=== PATIENT | male | born 1985 | race Caucasian/White ===

== ENCOUNTER → 2019-04-07 08:39 | Outpatient (BNVA) | payer MEDICARE, MEDICAID, SELFPAY | PROVIDERS: Family Provider Nurse Practitioner; PCP Nurse Practitioner; Visit Provider Nurse Practitioner Psychiatric/Mental Health | DX: F20.89 Other schizophrenia (principal) | CPT/HCPCS: 99213 ==

== ENCOUNTER → 2019-07-27 07:27 | Outpatient (BNVA) | payer MEDICARE, MEDICAID, SELFPAY | PROVIDERS: Family Provider Nurse Practitioner; PCP Nurse Practitioner; Visit Provider Nurse Practitioner Psychiatric/Mental Health | DX: F20.89 Other schizophrenia (principal) | CPT/HCPCS: 99213 ==

== ENCOUNTER → 2019-11-16 07:47 | Outpatient (BNVA) | payer MEDICARE, MEDICAID, SELFPAY | PROVIDERS: Family Provider Nurse Practitioner; PCP Nurse Practitioner; Visit Provider Nurse Practitioner Psychiatric/Mental Health | DX: F20.89 Other schizophrenia (principal) | CPT/HCPCS: 99213 ==

== ENCOUNTER → 2019-11-24 14:36 | Outpatient (BNVA) | payer MEDICARE, MEDICAID, SELFPAY | PROVIDERS: Family Provider Nurse Practitioner; PCP Nurse Practitioner; Visit Provider Nurse Practitioner Psychiatric/Mental Health | DX: Z79.899 Other long term (current) drug therapy (principal); F20.89 Other schizophrenia | CPT/HCPCS: 80053; 80061; 80178; 83036 ==

== ENCOUNTER → 2020-03-15 08:24 | Outpatient (BNVA) | payer MEDICARE, MEDICAID, SELFPAY | PROVIDERS: Family Provider Nurse Practitioner; PCP Nurse Practitioner; Visit Provider Nurse Practitioner Psychiatric/Mental Health | DX: F20.89 Other schizophrenia (principal); Z79.899 Other long term (current) drug therapy | CPT/HCPCS: 99214 ==

== ENCOUNTER → 2020-08-09 10:10 | Outpatient (BNVA) | payer MEDICARE, MEDICAID, SELFPAY | PROVIDERS: Family Provider Nurse Practitioner; PCP Nurse Practitioner; Visit Provider Nurse Practitioner Psychiatric/Mental Health | DX: F20.89 Other schizophrenia (principal); Z79.899 Other long term (current) drug therapy | CPT/HCPCS: 99214 ==

== ENCOUNTER → 2020-08-10 08:04 | Outpatient (BNVA) | payer MEDICARE, MEDICAID, SELFPAY | PROVIDERS: Family Provider Nurse Practitioner; PCP Nurse Practitioner; Visit Provider Nurse Practitioner Psychiatric/Mental Health | DX: Z79.899 Other long term (current) drug therapy (principal) | CPT/HCPCS: 80053; 80061; 80164; 80178; 83036 ==

== ENCOUNTER → 2020-09-12 14:59 | Outpatient (BNVA) | payer MEDICARE, MEDICAID, SELFPAY | PROVIDERS: Family Provider Nurse Practitioner; PCP Nurse Practitioner; Visit Provider Nurse Practitioner | DX: Z13.6 Encounter for screening for cardiovascular disorders (principal) | CPT/HCPCS: 80053; 80061; 85025 ==

== ENCOUNTER → 2020-11-03 10:40 | Outpatient (BNVA) | payer MEDICARE, MEDICAID, SELFPAY | PROVIDERS: Family Provider Nurse Practitioner; PCP Nurse Practitioner; Visit Provider Nurse Practitioner Psychiatric/Mental Health | DX: F20.89 Other schizophrenia (principal) | CPT/HCPCS: 99214 ==

== ENCOUNTER → 2021-01-26 10:47 | Outpatient (BNVA) | payer MEDICARE, MEDICAID, SELFPAY | PROVIDERS: Family Provider Nurse Practitioner; PCP Nurse Practitioner; Visit Provider Nurse Practitioner Psychiatric/Mental Health | DX: F20.89 Other schizophrenia (principal); Z79.899 Other long term (current) drug therapy | CPT/HCPCS: 99214 ==

== ENCOUNTER → 2021-04-20 10:26 | Outpatient (BNVA) | payer MEDICARE, MEDICAID, SELFPAY | PROVIDERS: Family Provider Nurse Practitioner; PCP Nurse Practitioner; Visit Provider Nurse Practitioner Psychiatric/Mental Health | DX: F20.89 Other schizophrenia (principal); Z79.899 Other long term (current) drug therapy | CPT/HCPCS: 80053; 80061; 80164; 83036; 99214 ==

== ENCOUNTER → 2021-05-02 10:39 | Outpatient (BNVA) | payer MEDICARE, MEDICAID, SELFPAY | PROVIDERS: Family Provider Nurse Practitioner; PCP Nurse Practitioner; Visit Provider Nurse Practitioner | DX: F20.89 Other schizophrenia (principal); Z79.899 Other long term (current) drug therapy; E78.2 Mixed hyperlipidemia | CPT/HCPCS: 80178 ==

== ENCOUNTER → 2021-07-20 10:48 | Outpatient (BNVA) | payer MEDICARE, MEDICAID, SELFPAY | PROVIDERS: Family Provider Nurse Practitioner; PCP Nurse Practitioner; Visit Provider Nurse Practitioner Psychiatric/Mental Health | DX: F20.89 Other schizophrenia (principal); Z79.899 Other long term (current) drug therapy | CPT/HCPCS: 99214 ==

== ENCOUNTER 2021-09-18 09:06 | Emergency (ER) | payer MEDICARE, MEDICAID, SELFPAY ==
[2021-09-18 09:13] VITALS: BP 156/101; PULSE 88; RESP 14; TEMP 36.4; O2SAT 99; BMI 27.3
--- NOTE | 2021-09-18 10:09 | ED.C_ITS ---
HPI - Psych General: Chief Complaint: Psychiatric Symptoms Stated Complaint: paranoid, hearing voices Time Seen by Provider: 09/18/21 09:23 Source: patient Mode of arrival: ambulatory History of Present Illness: 35-year-old male presents emergency room he has a history of schizophrenia. He has been hearing voices for last couple of months been getting worse he is not sleeping somewhat depressed he denies any suicidal homicidal thoughts. He is not aggressive he is aware of hallucinations and that they are not real. He states he has been admitted for suicidal ideation in the past but it was 10 or more years ago. MD complaint: other (Hallucinations) Onset (ago): month(s) Duration: intermittent and getting worse History of same: Yes Relieving factors: none Exacerbating factors: none Associated psychiatric symptoms: none Associated symptoms: Reports auditory hallucinations and visual hallucinations; Deny homicidal ideation or suicidal ideation Review of Systems Const: Denies: fever(s), chills, body aches, change in appetite, fatigue or malaise ENMT: Denies: throat pain, ear or mastoid pain, nasal discharge or nasal congestion Card: Denies: chest pain, edema, dyspnea on exertion or orthopnea Resp: Denies: dyspnea, productive cough or non-productive cough GI: Denies: abdominal pain, nausea, vomiting, hematemesis, coffee ground emesis, diarrhea, constipation, bloating, hematochezia or melena : Denies: flank pain, dysuria, urinary frequency or urinary urgency Skin/Breast: Denies: rash or pruritus Psych: Reports: visual hallucinations and auditory hallucinations; Denies: suicidal ideation or homicidal ideation [facility] ED PFSH: Medical History Hyperlipidemia, mixed Other schizophrenia Psychiatric care Surgical History No history of previous surgery Family History Other Diabetes Stroke Denies family history of Dementia Lung disease Cancer Hypertension Social History Smoking and tobacco status: never smoked Second hand smoke exposure: No Smoking risk assessment/counseling performed?: No Alcohol intake: never Desire information about alcohol rehabilitation?: No Counseling given: No Desire information about substance/drug rehabilitation?: No Counseling given: No Adopted: No Caregiver/support person: Yes Lives independently: No Household members: family Housing: House Marital status: Single Number of children: 0 service: No Current occupational status: disabled Pets and animals: Yes Current gender identity: Male Physical Exam Const: COMMON NORMALS: no acute distress GENERAL APPEARANCE: cooperative and comfortable ORIENTATION/CONSCIOUSNESS: Yes awake, Yes oriented to person, Yes oriented to place and Yes oriented to time HENMT: COMMON NORMALS: normocephalic, atraumatic and hearing grossly normal bilaterally HEAD & SCALP: normocephalic and atraumatic Resp: COMMON NORMALS: normal respiratory effort, No retractions, No use of accessory muscles and clear to auscultation bilaterally AUSCULTATION: clear to auscultation bilaterally Cardio: COMMON NORMALS: regular rate, regular rhythm and No murmurs present (Cardio) RATE: regular rate RHYTHM: regular rhythm GI: COMMON NORMALS: Soft to palpation and No hepatosplenomegaly present AUSCULTATION: Yes normoactive bowel sounds PALPATION: Yes Soft to palpation, No Tenderness to palpation present (GI), No Guarding due to palpation present (GI) and Yes No hepatosplenomegaly present Extremity: COMMON NORMALS: normal to inspection, capillary refill normal, no clubbing, cyanosis or edema, no calf tenderness and no pedal edema Neuro: SENSORIUM/ORIENTATION: Yes oriented to person, Yes oriented to place and Yes oriented to time Psych: COMMON NORMALS: mental status grossly normal and Normal thought process present THOUGHT PROCESS: Normal thought process present INSIGHT: Good insight present (Psych) OTHER: Patient calm. He is not alarmed by the auditory visual hallucinations he has good insight and he is aware that they are not real. He is repeatedly denying suicidal homicidal ideation. Skin: COMMON NORMALS: no rashes or lesions noted GENERAL SKIN EXAM: no rashes or lesions noted Course Vital Signs: Vital signs: Vital Signs Temperature 97.5 F L 09/18/21 09:13 Pulse Rate 86 09/18/21 11:04 Respiratory Rate 14 09/18/21 09:13 Blood Pressure 148/113 09/18/21 11:04 Pulse Oximetry 99 09/18/21 11:04 Oxygen Delivery Fl thod 09/18/21 11:00 [facility] - Psych Medical Decision Making Dr. Moss is on-call I discussed with him we both agreed on increasing his Invega to 9 mg daily. I gave him some shorter acting antipsychotics here discussed with the patient the plan we will also make arrangements for him to have short-term follow-up at [facility]. Neither Dr. Moss nor myself feel that he would benefit from inpatient status at this point he is not at a crisis level and we can likely treat him as an outpatient by increasing the Invega. Discussed this with patient and his family member/friend at the bedside. Also discussed they may need to continue titrating up depending on how well he did with this change. Medical Records I reviewed the patient's medical records. Lab Data I reviewed the patient's lab results. : 09/18/21 10:40 09/18/21 10:40 Laboratory Results WBC 6.3 10^3/uL (4.0-10.0) 09/18/21 10:40 RBC 4.76 10^6/uL (4.1-5.3) 09/18/21 10:40 Hgb 14.3 g/dL (11.7-16.6) 09/18/21 10:40 Hct 45.1 % (42.0-52.0) 09/18/21 10:40 MCV 94.7 fl (80-94) H 09/18/21 10:40 MCH 30.0 pg (28.0-34.0) 09/18/21 10:40 MCHC 31.7 g/dL (30.0-36.0) 09/18/21 10:40 RDW 11.9 % (12.1-15.1) L 09/18/21 10:40 Plt Count 210 10^3/cmm (130-400) 09/18/21 10:40 MPV 9.4 fL (7.4-10.4) 09/18/21 10:40 Neut % (Auto) 59.8 % 09/18/21 10:40 Lymph % (Auto) 26.3 % 09/18/21 10:40 [place] % (Auto) 10.7 % 09/18/21 10:40 Eos % (Auto) 1.8 % 09/18/21 10:40 Baso % (Auto) 0.8 % 09/18/21 10:40 Neut # (Auto) 3.75 10^3/uL (1.8-7.7) 09/18/21 10:40 Lymph # (Auto) 1.7 10^3/uL (0.8-4.8) 09/18/21 10:40 [place] # (Auto) 0.7 10^3/uL (0.2-0.9) 09/18/21 10:40 Eos # (Auto) 0.1 10^3/uL (0.0-0.8) 09/18/21 10:40 Baso # (Auto) 0.1 10^3/uL (0.0-0.1) 09/18/21 10:40 Nucleated RBC % (auto) 0 % 09/18/21 10:40 Nucleated RBCs # 0.0 /100WBC 09/18/21 10:40 Sodium 143 mmol/L (136-145) 09/18/21 10:40 Potassium 4.2 mmol/L (3.5-5.1) 09/18/21 10:40 Chloride 104 mmol/L (98-107) 09/18/21 10:40 Carbon Dioxide 29 mmol/L (22-29) 09/18/21 10:40 Anion Gap 14.2 (5-19) 09/18/21 10:40 BUN 13 mg/dL (6-20) 09/18/21 10:40 Creatinine 1.1 mg/dL (0.7-1.2) 09/18/21 10:40 GFR Calculation 75.7 mL/min (90-130) L 09/18/21 10:40 Glucose 99 mg/dL (65-115) 09/18/21 10:40 Calculated Osmolality 296 mOsm/kg (285-295) H 09/18/21 10:40 Calcium 10.1 mg/dL (8.5-10.5) 09/18/21 10:40 Total Bilirubin 0.2 mg/dL (0.15-1.2) 09/18/21 10:40 AST 19 U/L (0-40) 09/18/21 10:40 ALT 20 U/L (0-41) 09/18/21 10:40 Alkaline Phosphatase 79 IU/L (40-130) 09/18/21 10:40 Total Protein 7.4 g/dL (6.6-8.7) 09/18/21 10:40 Albumin 4.8 g/dL (3.5-5.2) 09/18/21 10:40 Globulin 2.6 g/dL (1.3-4.6) 09/18/21 10:40 Salicylates < 0.3 mg/dL (3-10) L 09/18/21 10:40 Acetaminophen < 5.0 ug/mL (10-30) L 09/18/21 10:40 [place] 0.6 mmol/L (0.6-1.2) 09/18/21 10:40 Discharge Plan Discharge Patient Disposition: Home Clinical Impression: Chronic schizophrenia Condition: Stable Prescriptions: New Invega 3 mg tablet extended release 24hr 3 mg PO DAILY Qty: 30 0RF Rx Instructions: Increase your total dose of paliperidone to 9 mg daily No Action omeprazole magnesium 20 mg tablet,delayed release (DR/EC) 20 mg PO DAILY Qty: 30 5RF benztropine 0.5 mg tablet 0.5 mg PO BID Qty: 180 1RF Rx Instructions: Take one tablet twice per day divalproex [Depakote] 250 mg tablet,delayed release (DR/EC) 250 mg PO .QHS Qty: 90 1RF Rx Instructions: Take one tablet at bedtime divalproex [Depakote] 500 mg tablet,delayed release (DR/EC) 500 mg PO .QHS Qty: 90 1RF Rx Instructions: Take one tablet at bedtime lithium carbonate 300 mg tablet extended release 300 mg PO BID Qty: 60 2RF Rx Instructions: Take one tablet twice per day melatonin 3 mg tablet 3 mg PO BEDTIME PRN (Reason: sleep) Qty: 90 1RF paliperidone [Invega] 6 mg tablet extended release 24hr 6 mg PO .bedtime Qty: 90 1RF Rx Instructions: Take one tablet at bedtime rosuvastatin [Crestor] 5 mg tablet 5 mg PO DAILY Qty: 30 2RF Discharge Orders: Discharge ED (Routine); Ordered 09/18/21 Ordered By: Julio Plunkett Discharge Diet: Usual diet Discharge Activity: Increase activity as tolerated Patient Instructions: Opioid Safety Activity Restrictions/Additional Instructions: Increase your Invega to 9 mg daily. Case management will work with you and [facility] to arrange for short-term follow-up within the next week. Continue all of your other medications at the same dosages. Coding Level of Care Code ED Luggage Liner for Deborah Cai
--- NOTE | 2021-09-18 10:42 | DCPLANNER ---
Addendum entered by Diamond Kowalski 10/06/21 16:20: Patient had a follow up appointment at [facility] - patient did attend appointment. Original Note: it project manager was asked to schedule a follow up appointment for patient with [facility] services. it project manager called [facility] spoke with scheduling, gave clinic patients appointment information. A follow up appointment was scheduled for , September 21, 2021 at 1:15 with Johnna. it project manager informed ER physician and patients parent with appointment information.
[2021-09-18 10:46] LABS: Basophils # 0.1 10^3/uL (0.0-0.1); Basophils % 0.8 %; Eosinophils # 0.1 10^3/uL (0.0-0.8); Eosinophils % 1.8 %; Hematocrit 45.1 % (42.0-52.0); Hemoglobin 14.3 g/dL (11.7-16.6); Lymphocytes # 1.7 10^3/uL (0.8-4.8); Lymphocytes % 26.3 %; Mean Corpuscular HGB Conc 31.7 g/dL (30.0-36.0); Mean Corpuscular Volume 94.7 fl (80-94); Mean Platelet Volume 9.4 fL (7.4-10.4); Monocytes # 0.7 10^3/uL (0.2-0.9); Monocytes % 10.7 %; Neutrophils # 3.75 10^3/uL (1.8-7.7); Neutrophils % 59.8 %; Nucleated Red Blood Cells % 0 %; Platelet Count 210 10^3/cmm (130-400); Red Blood Count 4.76 10^6/uL (4.1-5.3); Red Cell Distribution Width 11.9 % (12.1-15.1); White Blood Count 6.3 10^3/uL (4.0-10.0)
[2021-09-18] MEDS: ziprasidone 20 mg/mL SDV 10 MG IM (10:49)
[2021-09-18 11:00] VITALS: BP 148/113; PULSE 86; O2SAT 99
[2021-09-18 11:04] VITALS: BP 148/113; PULSE 86; O2SAT 99
[2021-09-18 11:21] LABS: Alanine Aminotransferase 20 U/L (0-41); Albumin Level 4.8 g/dL (3.5-5.2); Alkaline Phosphatase 79 IU/L (40-130); Anion Gap 14.2 (5-19); Aspartate Amino Transferase 19 U/L (0-40); Blood Urea Nitrogen 13 mg/dL (6-20); Calcium 10.1 mg/dL (8.5-10.5); Carbon Dioxide 29 mmol/L (22-29); Chloride 104 mmol/L (98-107); Globulin 2.6 g/dL (1.3-4.6); Glomerular Filtration Rate 75.7 mL/min (90-130); Glucose 99 mg/dL (65-115); Osmolality Calculated 296 mOsm/kg (285-295); Potassium 4.2 mmol/L (3.5-5.1); Sodium 143 mmol/L (136-145); Total Bilirubin 0.2 mg/dL (0.15-1.2); Total Protein 7.4 g/dL (6.6-8.7)
[2021-09-18 11:24] LABS: Lithium 0.6 mmol/L (0.6-1.2)
[2021-09-18 11:35] LABS: Acetaminophen < 5.0 ug/mL (10-30); Salicylate < 0.3 mg/dL (3-10)
== END 2021-09-18 10:55 | disposition home or self-care (01) ==
PROVIDERS: Emergency Provider Family Medicine
DX: F20.9 Schizophrenia, unspecified (principal); E78.2 Mixed hyperlipidemia
CPT/HCPCS: 36415; 80053; 80178; 80307; 85025; 96372; 99284; J3486

== ENCOUNTER 2021-09-21 14:31 | Outpatient (CLI) | payer MEDICARE, MEDICAID, SELFPAY ==
--- NOTE | 2021-09-21 14:46 | ECG_ITS ---
[facility] Test Date: 2021-09-21 Pat Name: Mars Wade Department: Room: Gender: Male Sap Bi Architect: : [id number] Requested By: Johnna Pereyra Order Number: [id number] Robles MD: Elke Julian M.D. Measurements Intervals [place] Rate: 94 P: 44 WV: 149 QRS: 12 QRSD: 103 T: 65 QT: 346 QTc: 434 Interpretive Statements SINUS RHYTHM Compared to ECG 06/27/2017 17:15:51 No significant changes Electronically Signed On 09-21-2021 18:53:09 CDT by Elke Julian M.D. [id number]
== END 2021-09-21 14:32 | disposition home or self-care (01) ==
LOC: RT 14:35
PROVIDERS: Visit Provider Nurse Practitioner Psychiatric/Mental Health
DX: Z76.89 Persons encountering health services in other specified circumstances (principal)
CPT/HCPCS: 93005

== ENCOUNTER → 2021-11-09 14:20 | Outpatient (BNVA) | payer MEDICARE, MEDICAID, OTHER, SELFPAY | PROVIDERS: PCP Family Medicine; Visit Provider Nurse Practitioner Psychiatric/Mental Health | DX: Z79.899 Other long term (current) drug therapy (principal); F20.89 Other schizophrenia | CPT/HCPCS: 80053; 80164 ==

== ENCOUNTER → 2022-10-24 17:09 | Outpatient (BNVA) | payer MEDICARE, MEDICAID, SELFPAY | PROVIDERS: PCP Family Medicine; Visit Provider Family Medicine | DX: F20.89 Other schizophrenia (principal); E78.2 Mixed hyperlipidemia; K21.9 Gastro-esophageal reflux disease without esophagitis | CPT/HCPCS: 80053; 80164; 80178; 84443; 85025 ==

== ENCOUNTER → 2022-12-25 15:39 | Outpatient (BNVA) | payer MEDICARE, SELFPAY | PROVIDERS: PCP Family Medicine; Visit Provider Nurse Practitioner Psychiatric/Mental Health | DX: Z79.899 Other long term (current) drug therapy (principal) | CPT/HCPCS: 80053; 80061; 80178; 83036; 83721 ==

== ENCOUNTER → 2023-01-09 16:16 | Outpatient (BNVA) | payer MEDICARE, SELFPAY | PROVIDERS: PCP Family Medicine; Visit Provider Nurse Practitioner Family | DX: R10.9 Unspecified abdominal pain (principal); R11.2 Nausea with vomiting, unspecified; K21.9 Gastro-esophageal reflux disease without esophagitis | CPT/HCPCS: 80053; 85025 ==

== ENCOUNTER 2023-01-29 07:45 | Outpatient (CLI) | payer MEDICARE, MEDICAID, SELFPAY ==
--- NOTE | 2023-01-29 08:30 | US_ITS ---
WS: [id number] RIGHT UPPER QUADRANT ULTRASOUND HISTORY: R10.9 - Unspecified abdominal pain COMPARISON: None available. Liver: 16.3 cm in length. Normal size liver and echogenicity. No bile duct dilatation or mass. Portal Vein: Normal hepatopetal flow with monophasic waveform. Gallbladder: Normally distended gallbladder with no stones or wall thickening. CBD: 0.5 cm Pancreas: Normal size and echogenicity. Right kidney: 9.6 cm in length. Kidney is low normal size. There is increased echogenicity throughout the kidney no hydronephrosis. There are a few tiny cortical cysts. LEFT kidney was imaged for compar anastacio and appears similar. Aorta and IVC: Unremarkable abdominal aorta and IVC. No ascites. IMPRESSION: 1. Normal gallbladder. 2. Bilateral echogenic kidneys. Nonspecific finding. Differential includes normal variation, amyloido sis, chronic renal disease.
== END 2023-01-29 07:46 | disposition home or self-care (01) ==
LOC: RAD 07:45
PROVIDERS: PCP Family Medicine; Visit Provider Nurse Practitioner Family
DX: R10.9 Unspecified abdominal pain (principal); R11.2 Nausea with vomiting, unspecified; K21.9 Gastro-esophageal reflux disease without esophagitis
CPT/HCPCS: 76705

== ENCOUNTER → 2023-02-13 10:09 | Outpatient (BNVA) | payer MEDICARE, SELFPAY | PROVIDERS: PCP Family Medicine; Visit Provider Nurse Practitioner Family | DX: N28.1 Cyst of kidney, acquired (principal) | CPT/HCPCS: 80053 ==

== ENCOUNTER 2023-02-20 13:54 | Outpatient (CLI) | payer MEDICARE, MEDICAID, SELFPAY ==
[2023-02-20] MEDS: iohexol 350 mg/mL 500 mL Btl (per mL) PO (14:37)
--- NOTE | 2023-02-20 15:00 | CT_ITS ---
WS: [id number] CT ABDOMEN AND PELVIS WITH CONTRAST HISTORY: N27.1 - Small kidney, bilateral TECHNIQUE: Imaging performed of the abdomen and pelvis with IV contrast. Single phase imaging of the abdomen. Coronal and sagittal reformats are submitted. All CT scans at [facility] use at [address] one of these dose optimization techniques: automated exposure control; mA and/or kV adjustment per patient size (includes targeted exams where dose is matched to clinical indication); or iterative re construction. IV CONTRAST: Omnipaque 350; 100 mL IV. Oral contrast: Yes. DLP: 382.46 mGy.cm COMPARISON: Renal ultrasound 01/29/2023 Lower thorax: Lung bases are clear. Heart is normal size. No hiatal hernia. Liver/biliary system: Normal size with no intrahepatic dilatation. Gallbladder: Mildly contracted. Otherwise negative. Pancreas: Normal size pancreas and pancreatic duct. No adjacent inflammation. Spleen: Normal size spleen. No mass or infarct. Adrenal glands: Normal. Right kidney: Kidney measures 9.0 cm in length. Kidney is low normal size. There are a few small scat tered too small to characterize hypodensities within the kidney. No solid mass. Left kidney: Kidney measures 9.0 cm in length. There are a few scattered low-attenuation nodules whic h are too small to characterize. No obstruction. No solid mass. Aorta: Normal. Lymphadenopathy: None. Free fluid: None. GI tract: Unremarkable. Abdominal wall: Unremarkable abdominal wall. No hernia. Pelvis: No free fluid or adenopathy within the pelvis. Mixed lytic and sclerotic lesion within the hunter perior RIGHT acetabulum. No additional similar lesions. Mixed lytic and sclerotic lesion measures 1.9 x 2.6 cm. No bone destruction. Bones: Unremarkable. IMPRESSION: 1. Low normal size kidneys with too small to characterize hypodensities. No obstruction. No solid ma ss. This may be normal variation for this patient. 2. Mixed lytic and sclerotic lesion in the RIGHT acetabulum. With no history of prior malignancy thi s is probably a benign lesion. For further evaluation bone scan imaging can be obtained. 3.
[2023-02-20] MEDS: iohexol 350 mg/mL 500 mL Btl (per mL) IV (15:07)
== END 2023-02-20 13:55 | disposition home or self-care (01) ==
LOC: RAD 13:54
PROVIDERS: PCP Family Medicine; Visit Provider Nurse Practitioner Family
DX: N27.1 Small kidney, bilateral (principal); R93.429 Abnormal radiologic findings on diagnostic imaging of unspecified kidney; N28.1 Cyst of kidney, acquired
CPT/HCPCS: 74177; Q9967

== ENCOUNTER → 2023-06-12 08:22 | Outpatient (BNVA) | payer MEDICARE, OTHER, MEDICAID, SELFPAY | PROVIDERS: PCP Family Medicine; Visit Provider Nurse Practitioner Psychiatric/Mental Health | DX: Z79.899 Other long term (current) drug therapy (principal) | CPT/HCPCS: 80053; 80164; 80178 ==

== ENCOUNTER 2023-08-05 09:35 | Emergency (ER) | payer MEDICARE, MEDICAID, SELFPAY ==
[2023-08-05 09:51] VITALS: BP 125/89; PULSE 99; RESP 16; TEMP 36.9; O2SAT 98; BMI 30.5
--- NOTE | 2023-08-05 10:05 | ED_ITS ---
HPI - Eye Problem General: Chief complaint: Eye Problems Stated complaint: both eyes swollen Time Seen by Provider: 08/05/23 09:50 Source: patient Mode of arrival: ambulatory Limitations: no limitations History of Present Illness: Patient is a 37-year-old male who presents to the ED today with a complaint of red eyes that are draining purulent like material. He states they burn. Patient states symptoms started while visiting friends/family in [facility]. He does not recall anybody else having similar symptoms. He states symptoms started in his left eye and moved to his right. He states they have been draining since yesterday. He states they were matted shut this morning. No foreign body sensations. No injury or trauma. No visual changes. MD chief complaint: eye pain and eye redness Onset (ago): day(s) Duration: constant Location: both eyes Eye Symptoms: burning, redness and discharge Place: home Mechanism: none Severity: moderate Associated symptoms: Reports no associated symptoms; Denies fever(s) Treatments Prior to Arrival: OTC eye drops Related Data: Patient tetanus UTD: Yes Review of Systems Const: Denies: fever(s) Eyes: Reports: eye discharge and eye redness; Denies: change in vision, blurry vision, photophobia, floaters or seeing flashes PFSH ED PFSH: Medical History Elevated serum creatinine Hyperlipidemia, mixed Psychiatric care Other schizophrenia Surgical History No history of previous surgery Family History Other Diabetes Stroke Denies family history of Dementia Lung disease Cancer Hypertension Social History Smoking and tobacco/nicotine status: never used tobacco/nicotine Second hand smoke exposure: No Alcohol intake: never Substance/Drug Use: never Adopted: No Caregiver/support person: Yes Lives independently: No Household members: family Housing: House Marital status: Single Number of children: 0 service: No Current occupational status: disabled Pets and animals: Yes Do you think of yourself as: Straight/Heterosexual Current gender identity: Male Physical Exam Const: COMMON NORMALS: no acute distress, patient oriented x3, no limitations, alert and well nourished HENMT: FACE & SINUS: normal facial exam and sinuses nontender Eye: COMMON NORMALS: Equal, round and reactive pupils present and EOMs intact bilaterally (pt chronically has a L amblyopia) GENERAL EYE: normal light reflex VISUAL ACUITY: Yes acuity normal PERIORBITAL: periorbital findings normal EYELID: eyelids normal CONJUNCTIVA: Yes conjunctival abnormal positive bilateral conjunctival injection and discharge SCLERA: sclerae normal CORNEA: Yes corneas normal PUPIL: Yes Equal, round and reactive pupils present DIRECT OPHTHALMOSCOPY: Yes normal light reflex Neck/C-Spine: COMMON NORMALS: no lymphadenopathy Neuro: COMMON NORMALS: patient oriented x3 SENSORIUM/ORIENTATION: Yes alert Course Vital Signs: Vital signs: Vital Signs Temperature 98.4 F 08/05/23 09:51 Pulse Rate 99 08/05/23 09:51 Respiratory Rate 16 08/05/23 09:51 Blood Pressure 125/89 08/05/23 09:51 Pulse Oximetry 98 08/05/23 09:51 Oxygen Delivery Me thod Room Air 08/05/23 09:51 MDM - Eye Problem Medical Decision Making Patient complains of eye burning, redness, and discharge. He states that started with the left eye and then moved to the right. Will be treated for bacterial conjunctivitis at this time. Recommend follow-up with primary care or ophthalmology later this week if symptoms do not improve and certainly if they worsen. Return to precautions given. Medical Records I reviewed the patient's medical records. No radiology studies performed this visit Discharge Plan Discharge Patient Disposition: Home Clinical Impression: Bacterial conjunctivitis Condition: Stable Prescriptions: New erythromycin 5 mg/gram (0.5 %) ointment 1 applic ophthalmic (eye) Q4H 7 Days Qty: 1 0RF No Action pantoprazole [Protonix] 40 mg tablet,delayed release (DR/EC) 40 mg PO DAILY Qty: 30 5RF paliperidone [Invega] 6 mg tablet extended release 24hr 6 mg PO .5 pm Qty: 30 6RF Rx Instructions: Take one tablet at 5 pm lithium carbonate 300 mg tablet extended release 300 mg PO BID Qty: 60 6RF Rx Instructions: Take one tablet twice per day divalproex [Depakote] 500 mg tablet,delayed release (DR/EC) 500 mg PO .QHS Qty: 30 6RF Rx Instructions: Take one tablet at bedtime benztropine 0.5 mg tablet 0.5 mg PO .5 pm Qty: 30 6RF Rx Instructions: Take one tablet at 5 pm melatonin 5 mg capsule PO dexlansoprazole [Dexilant] 60 mg capsule,biphase delayed releas 60 mg PO DAILY Qty: 30 2RF Discharge Orders: Discharge ED (Routine); Ordered 08/05/23 Ordered By: Chelsie Moreno Referrals: Fiordaliza Estevez, [employer] [Primary Care Provider] - Patient Instructions: Conjunctivitis (ED) Activity Restrictions/Additional Instructions: As we discussed I would like you to follow-up with your primary care provider or Dr. Wilkins' office here in town later this week if eyes do not begin to improve and certainly if they are worsening or if you start having any visual changes, severe eye pain, foreign body sensations, or any other concerns you may have. Coding Level of Care Code ED Mathematical Physicist for Deborah Cai
== END 2023-08-05 11:01 | disposition home or self-care (01) ==
PROVIDERS: Emergency Provider Physician Assistant; PCP Nurse Practitioner
DX: H10.89 Other conjunctivitis (principal); E78.2 Mixed hyperlipidemia
CPT/HCPCS: 99283

== ENCOUNTER → 2023-08-26 13:38 | Outpatient (BNVA) | payer MEDICARE, OTHER, SELFPAY | PROVIDERS: PCP Family Medicine; Visit Provider Nurse Practitioner Psychiatric/Mental Health | DX: Z79.899 Other long term (current) drug therapy (principal) | CPT/HCPCS: 80053; 80061; 83036 ==

== ENCOUNTER 2024-03-04 14:22 | Emergency (ER) | payer MEDICARE, MEDICAID, SELFPAY ==
[2024-03-04 14:24] VITALS: BP 143/97; PULSE 107; RESP 18; TEMP 36.4; O2SAT 96
[2024-03-04 14:58] LABS: Basophils # 0.1 10^3/uL (0.0-0.1); Basophils % 0.7 %; Eosinophils # 0.5 10^3/uL (0.0-0.8); Eosinophils % 5.8 %; Hematocrit 44.3 % (37-53); Lymphocytes # 2.7 10^3/uL (0.8-4.8); Lymphocytes % 31.2 %; Mean Corpuscular HGB Conc 32.5 g/dL (30-55); Mean Corpuscular Hemoglobin 28.9 pg (27-33); Mean Platelet Volume 9.9 fL (7.4-10.4); Monocytes % 11.9 %; Neutrophils # 4.38 10^3/uL (1.8-7.7); Neutrophils % 49.9 %; Nucleated Red Blood Cells % 0 %; Platelet Count 227 10^3/cmm (157-399); Red Blood Count 4.98 10^6/uL (3.85-5.65); Red Cell Distribution Width 12.3 % (12.1-15.1); White Blood Count 8.76 10^3/uL (3.29-11.43)
[2024-03-04 15:15] LABS: Alanine Aminotransferase 32 U/L (0-41); Albumin Level 4.4 g/dL (3.5-5.2); Alkaline Phosphatase 108 U/L (40-130); Anion Gap 16.1 (5-19); Aspartate Amino Transferase 20 U/L (0-40); Blood Urea Nitrogen 14 mg/dL (6-20); Carbon Dioxide 29 mmol/L (22-29); Chloride 97 mmol/L (98-107); Globulin 2.8 g/dL (1.3-4.6); Glomerular Filtration Rate 52.1 mL/min (90-130); Glucose 99 mg/dL (65-115); Osmolality Calculated 287 mOsm/kg (285-295); Potassium 4.1 mmol/L (3.5-5.1); Sodium 138 mmol/L (136-145); Total Bilirubin 0.2 mg/dL (0.15-1.2); Total Protein 7.2 g/dL (6.6-8.7)
== END 2024-03-04 16:50 | disposition left against medical advice (07) ==
PROVIDERS: Emergency Medicine; Emergency Provider Family Medicine; PCP Family Medicine
DX: Z53.21 Procedure and treatment not carried out due to patient leaving prior to being seen by health care provider (principal)
CPT/HCPCS: 36415; 80053; 85025

== ENCOUNTER → 2024-06-04 11:45 | Outpatient (BNVA) | payer OTHER, MEDICARE, SELFPAY | PROVIDERS: PCP Family Medicine; Visit Provider Nurse Practitioner Psychiatric/Mental Health | DX: Z79.899 Other long term (current) drug therapy (principal); F20.89 Other schizophrenia | CPT/HCPCS: 80061; 80164; 80178; 83721 ==

== ENCOUNTER → 2024-09-28 11:22 | Outpatient (BNVA) | payer MEDICARE, MEDICAID, SELFPAY | PROVIDERS: PCP Family Medicine; Visit Provider Clinical Nurse Specialist Adult Health | DX: K21.9 Gastro-esophageal reflux disease without esophagitis (principal) | CPT/HCPCS: 80053; 85025; 85651; 86140 ==

== ENCOUNTER → 2024-10-19 11:15 | Outpatient (BNVA) | payer MEDICARE, OTHER, SELFPAY | PROVIDERS: PCP Clinical Nurse Specialist Adult Health; Visit Provider Clinical Nurse Specialist Adult Health | DX: I10 Essential (primary) hypertension (principal); K21.9 Gastro-esophageal reflux disease without esophagitis; E78.2 Mixed hyperlipidemia; N18.31 Chronic kidney disease, stage 3a | CPT/HCPCS: 83036 ==

== ENCOUNTER → 2025-01-26 13:57 | Outpatient (BNVA) | payer MEDICARE, MEDICAID, OTHER, SELFPAY | PROVIDERS: PCP Clinical Nurse Specialist Adult Health; Visit Provider Nurse Practitioner Psychiatric/Mental Health | DX: Z79.899 Other long term (current) drug therapy (principal) | CPT/HCPCS: 80164; 80178 ==